=== PATIENT | male | born 1965 | race Caucasian/White ===

== ENCOUNTER 2016-07-19 16:12 | Emergency (ER) | payer MEDICAID, OTHER ==
[~2016-07-19] VITALS: Ht 182.9 cm; Wt 81.8 kg
[2016-07-19 16:44] VITALS: Ht 182.9 cm; Wt 81.8 kg
--- NOTE | 2016-07-19 18:37 | EN ---
Date/Time of Note Date/Time of Note DATE: 07/19/16 TIME: 18:35 ER Progress Note This 50-year-old male presents here in emergency department for complaints of left eye redness burning pain for the last 3 days, discussed the pain as burning , 6/10 scale, not better or worse with anything. Patient denies any vision changes. Patient denies any eye discharge. Patient did not take any medications to help with pain. Patient has a history of herpes simplex Virus, patient did not have any trauma in the eye. Patient is complaining of tearing. Patient was initially evaluated here in the medical examination, patient is needs fluorescein dye test for further evaluation to rule out her herpes simplex virus infection corneal abrasions or foreign body, patient will be evaluated in ER 2, waiting for a bed HERMAN HE NP Jul 19, 2016 18:36
--- NOTE | 2016-07-19 20:26 | ERD ---
ER Documentation Chief Complaint Date/Time DATE: 07/19/16 TIME: 20:25 Chief Complaint LEFT EYE REDNESS AND BURNING X3 DAYS HPI The patient is a 50-year-old male here with left eye redness and burning 3 days. He states he had some watery discharge on day 1. Denies visual changes or any kind. Denies wearing contacts. Denies foreign body in his eye. Denies metal or wood working. He does state that he rubs his eyes a lot and approximately one week ago he swam in a chlorinated swimming pool with his eyes open, and is been rubbing his eyes more than usual. Denies feeling ill or recent illness. States that his eye is quite painful and burning. He states that he has had a history of "eye herpes " possibly 15 years ago. ROS All systems reviewed and are negative except as per history of present illness. Medications Home Meds Active Scripts Ibuprofen* (Motrin*) 600 Mg Tab, 600 MG PO Q8, #30 TAB Prov:KATHY MAYFIELD, CARGO AND CONTAINER INSPECTOR 07/19/16 Erythromycin* (Erythromycin* Ophthalmic) 1 Applic Oint, 1 APPLIC LEFT EYE QID for 10 Days, EA Prov:KATHY MAYFIELD, CARGO AND CONTAINER INSPECTOR 07/19/16 Allergies Allergies: Coded Allergies: No Known Allergy (Unverified , 07/19/16) Physical Exam Vitals Vital Signs Date Time Temp Pulse Resp B/P Pulse Ox O2 Delivery O2 Flow Rate FiO2 07/19/16 16:44 98.2 60 18 149/70 99 Physical Exam INITIAL VITAL SIGNS: Reviewed by me GENERAL: Alert. Well developed and well nourished. No respiratory distress HEAD: Head is normocephalic. Atraumatic. EYES: EOMI. PERRL. No scleral icterus. Left eye with conjunctival injection throughout. Left eye with fluorescein uptake in the bottom portion of the cornea at the 5 o'clock position. Visual acuity: OD: 20/70 OS: 20/30 OU: 20/25 ENT: External ears, nose, and mouth normal. Nasal passages patent. Moist mucous membranes. NECK: Supple. Full range of motion. Trachea midline. RESPIRATORY: No tachypnea. Clear to auscultation bilaterally. No wheezing, rales , or rhonchi. CV: Regular rate and rhythm. No murmurs, rubs, or gallops ABDOMEN: Soft, non-distended, non-tender. No guarding. No rebound. No masses. Bowel sounds normal in all quadrants. BACK: No CVA tenderness. Full ROM. EXTREMITIES: No obvious deformity. No clubbing or cyanosis. No edema. SKIN: Warm and dry. No diaphoresis. No obvious rashes or lesions. NEUROLOGIC: Alert and oriented x 3. Appropriate. Face is symmetric. Speech is normal. Moves all extremities equally. Results 24 hrs Current Medications Medications (Trade) Dose Ordered Sig/Nilsa Route PRN Reason Start Time Stop Time Status Last Admin Dose Admin Fluorescein Sodium (Tfjrf-I-Epnyo) 1 strip ONCE ONCE LEFT EYE 07/19/16 20:30 2 20:31 DC Tetracaine HCl (Tetracaine 0.5% Oph) 1 drop ONCE ONCE LEFT EYE 07/19/16 20:30 2 20:31 DC Procedures/MDM Nursing Notes Reviewed Previous Medical Records requested via [employer]. EMERGENCY DEPARTMENT COURSE / MEDICAL DECISION MAKING: The patient comes to the ED secondary to left eye redness and pain for 3 days. Differential diagnosis upon initial evaluation includes but is not limited to: Foreign body, uveitis, iritis, corneal abrasion, bacterial conjunctivitis, viral conjunctivitis, allergic conjunctivitis, and others. The case was discussed with supervising physician Dr. Washington, who saw and examined the patient at bedside. She also did a Davis lamp exam with fluorescein. It was agreed that the patient has a corneal abrasion of the left eye and will be treated on an outpatient basis with antibiotics and close follow -up. No foreign body was visualized in the eye. No hyphema, purulent drainage, or any other abnormalities noted. Impression: Corneal abrasion, left eye The patient was treated here in the department with tetracaine drops with good pain relief. Based on patient's history of present illness and physical examination the decision was made to discharge. The patient was re-evaluated after ED treatment and stabilizing measures, and symptoms have improved. There is no evidence of life threatening injuries or illnesses at this time. On re-examination, patient resting in no distress, stable vital signs, reports feeling better and safe for discharge with outpatient follow up with PMD in 1-2 days. Patient given return precautions. Prescription Erythromycin ophthalmic Ibuprofen Patient's blood pressure was elevated but appears stable without evidence of hypertensive emergency, end organ damage, chest pain or shortness of breath. The patient was counseled about the risks of untreated hypertension and urged to pursue outpatient monitoring and therapy in 2-3 days with their primary care physician. Departure Diagnosis: Primary Impression: Corneal abrasion, left Encounter type: initial encounter Qualified Code: S05.02XA - Corneal abrasion, left, initial encounter Condition: Stable KATHY MAFYIELD NP Jul 19, 2016 20:26
[2016-07-19] MEDS ORDERED: FLUORESCEIN STRIP LEFT EYE ONE (20:30)
[2016-07-19] MEDS ORDERED: TETRACAINE 0.5% 15 ML OPH LEFT EYE ONE (20:30)
[2016-07-19] MEDS ORDERED: IBUP-1542 PO (21:09)
[2016-07-19] MEDS ORDERED: ERYTOPOI LEFT EYE (21:09)
== END 2016-07-19 21:30 | disposition home or self-care (01) ==
LOC: FTE 16:12
DX: S05.02XA Injury of conjunctiva and corneal abrasion without foreign body, left eye, initial encounter (principal); X58.XXXA Exposure to other specified factors, initial encounter; Y92.9 Unspecified place or not applicable
CPT/HCPCS: Z7502; Z7610; 99283

== ENCOUNTER 2016-09-11 22:58 | Emergency (ER) | payer MEDICAID ==
[~2016-09-11] VITALS: Ht 182.9 cm; Wt 81.5 kg
[~2016-09-11 22:58] MED LIST: ERYTOPOI LEFT EYE; IBUP-1542 PO
[2016-09-11 23:10] VITALS: Ht 182.9 cm; Wt 81.5 kg
[2016-09-12] MEDS ORDERED: FLUORESCEIN STRIP LEFT EYE ONE (01:00)
[2016-09-12] MEDS ORDERED: TETRACAINE 0.5% 4 ML OPH LEFT EYE ONE (01:00)
[2016-09-12] MEDS ORDERED: ACYC800T57 PO (01:55)
--- NOTE | 2016-09-12 02:03 | RADRPT ---
PROCEDURE: Ultrasound of the orbits CLINICAL INDICATION: left eye pain TECHNIQUE: High frequency scanning of both globes was performed COMPARISON: None FINDINGS: Imaging of the right eye shows a thin echogenic line in the posterior chamber, more likely due to de bris for vitreous hemorrhage given the orientation. Retinal hemorrhage cannot be completely exclude d. Imaging of the left eye shows multiple small echogenic foci in the posterior chamber consistent with vitreous debris/hemorrhage. The lens of both eyes appears grossly intact. IMPRESSION: Probable bilateral vitreous hemorrhage of uncertain age. Retinal hemorrhage cannot be excluded on t he right. MRI may be helpful. Physician Max Date Time Electronically viewed and signed by Loli Santana Physician on 09/12/2016 02:03 LE/
--- NOTE | 2016-09-12 02:03 | ERD ---
ER Documentation Chief Complaint Date/Time DATE: 09/12/16 TIME: 01:58 Chief Complaint Pt c/o L eye pain that has not gone away HPI This is a 51-year-old male presents to the ER complaining of continued left eye pain this been going on for the last month. Patient states that his left thigh burn that he is sensitive to light. Patient was seen here about a month ago and was given antibiotic drops for a corneal abrasion. Patient states that he had the drops, redness 1 away however pain did not go away. Patient denies any vision change or vision loss. He denied seeing any bright lights, halos, floaters. Denies any eye trauma. 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 He feels that this is the same problem. Denies any nausea or vomiting. He denies any headache. ROS 12 point review of systems was done, all negative except per HPI. Medications Home Meds Active Scripts Acyclovir* (Zovirax*) 800 Mg Tablet, 400 MG PO 5 TIMES DAILY for 7 Days, TAB Prov:SKYLER LEY 09/12/16 Ibuprofen* (Motrin*) 600 Mg Tab, 600 MG PO Q8, #30 TAB Prov:KATHY MAYFIELD, COMMODITY SUPERVISOR 07/19/16 Erythromycin* (Erythromycin* Ophthalmic) 1 Applic Oint, 1 APPLIC LEFT EYE QID for 10 Days, EA Prov:KATHY MAYFIELD, COMMODITY SUPERVISOR 07/19/16 Allergies Allergies: Coded Allergies: No Known Allergy (Unverified , 07/19/16) PMhx/Soc Medical and Surgical Hx: pt denies Medical Hx, pt denies Surgical Hx Hx Alcohol Use: No Hx Substance Use: No Hx Tobacco Use: No Smoking Status: Never smoker Physical Exam Vitals Vital Signs Date Time Temp Pulse Resp B/P Pulse Ox O2 Delivery O2 Flow Rate FiO2 09/11/16 23:10 98.3 65 16 123/68 98 Physical Exam GENERAL: The patient is well developed and appropriate for usual state of health , in no apparent distress. HEENT: Atraumatic. Conjunctivae with no injection or erythema. There is no eye discharge. Patient has normal and nonpainful extraocular movements visual ahmadi are intact. There is no hyphema, hypopyon. No sign erythema to the eye. No foreign body. Negative Marc sign CHEST: Clear to auscultation bilaterally. There are no rales, wheezes or rhonchi. HEART: Regular rate and rhythm. No murmurs, clicks, rubs or gallops. NEURO: Alert and oriented. \ Results 24 hrs Current Medications Medications (Trade) Dose Ordered Sig/Nilsa Route PRN Reason Start Time Stop Time Status Last Admin Dose Admin Fluorescein Sodium (Xcsky-B-Gpnim) 1 strip ONCE ONCE LEFT EYE 09/12/16 01:00 09/12/16 01:01 DC Tetracaine HCl (Tetracaine 0.5% Steri-Unit Sarah) 1 drop ONCE ONCE LEFT EYE 09/12/16 01:00 09/12/16 01:01 DC Procedures/MDM he was stable to the ER course visual acuity was taken and patient has 20/20 vision. Troponin was used to measure pressure and eye pressure was 20/ 20bilaterally. Eye was examined with fluorescing stain there is no evidence of dendrites or corneal abrasions or ulcers on my examination. On ultrasound patient did have vitreous hemorrhages of unknown age. Discussed this finding with Dr. Early. At this time patient does not have any blurry vision in his visual acuity is normal, because of this patient is able to follow-up outpatient as soon as possible. I urged patient to the head batcher tomorrow. .Subconjunctival hemorrhage, bacterial conjunctivitis, viral conjunctivitis, allergic conjunctivitis,orbital cellulitis, hyphema, corneal abraion, keratitis , uveitis, angle-closure glaucoma, retinal detachment, ruptured globe. Patient may have recurrent herpes infection and there is no evidence of dendrites. Patient will be sent home with acyclovir 400 mg 5 times a day. I do not believe patient needs steroids at this time as he does not have any dendrites. Patient does not have any vision loss in his visual acuity is well. At this time patient urgently needs to follow-up with an head batcher a given information for [facility]. Patient needs to follow-up with his primary care doctor' s within 1-2 days return to ER sooner symptoms worsen. My shared medical decision making with patient he understands and agrees with plan. Departure Diagnosis: Primary Impression: Ocular herpes Condition: Stable Patient Instructions: The Herpes Virus Referrals: [facility] Hours: Mon - Fri 9:00 AM - 5:00 PM Additional Instructions: SPECIALIST: YOU HAVE A MEDICAL CONDITION WHICH REQUIRES YOU TO SEE A SPECIALIST WITHIN THE NEXT 1-2 DAYS. PLEASE FOLLOW UP WITH YOUR PRIMARY PHYSICIAN FOR REFFERAL.IF YOU DO NOT HAVE A PRIMARY CARE PHYSICIAN AND/OR YOU CAN NOT AFFORD TO SEE A PHYSICIAN THE FOLLOWING RESOURCES HAVE BEEN SUPPLIED TO YOU. IT IS YOUR RESPONSIBILITY TO BE SEEN BY THE SPECIALIST PLEASE SEE OPTHALMOLOGIST SOON POSSIBLE! SKYLER LEY Sep 12, 2016 02:02
[2016-09-12 02:20] VITALS: TEMP 97
== END 2016-09-12 02:20 | disposition home or self-care (01) ==
LOC: FTE 22:58
DX: B00.50 Herpesviral ocular disease, unspecified (principal)
CPT/HCPCS: 76536; Z7502; Z7610

== ENCOUNTER 2016-09-19 05:18 | Emergency (ER) | payer SELFPAY ==
[~2016-09-19] VITALS: Ht 182.9 cm; Wt 79.5 kg
[~2016-09-19 05:18] MED LIST changes: +ACYC800T57 PO
[2016-09-19 05:21] VITALS: Ht 182.9 cm; Wt 79.5 kg
[2016-09-19] MEDS ORDERED: KETOROLAC 30 MG INJ IV STA (06:13)
--- NOTE | 2016-09-19 06:33 | ERD ---
ER Documentation Chief Complaint Date/Time DATE: 09/19/16 TIME: 06:25 Chief Complaint Back pain started 30 minutes ago HPI This is a 51-year-old male presenting to the emergency department for low back pain x 1 hour. Pain is nonradiating. 1 hour. Patient states he woke up in the middle the night to use the bathroom and when he stood up he had sharp pain to his midline lower back. Patient describes pain as sharp No abdominal pain or chest pain. No shortness of breath or difficulty breathing. No heart palpitation. No saddle anesthesia. No urinary or bowel incontinence. No dysuria, hematuria or difficulty urinating. No fevers or chills. No recent fall or injury. Patient states he had similar pain about 15 years ago and he went to chiropractor and pain resolved. No confusion, neurological deficits or weakness. Patient did not take any medications at home. ROS All systems reviewed and are negative except as per history of present illness. Medications Home Meds Active Scripts Ibuprofen* (Motrin*) 600 Mg Tab, 600 MG PO Q6, #15 TAB Prov:JESSE LINDER NP 09/19/16 Hydrocodone/Acetaminophen ([place] 5-325 Tablet) 1 Each Tablet, 1 TAB PO Q6H Y for PAIN, #7 TAB Prov:JESSE LINDER NP 09/19/16 Acyclovir* (Zovirax*) 800 Mg Tablet, 400 MG PO 5 TIMES DAILY for 7 Days, TAB Prov:SKYLER LEY 09/12/16 Ibuprofen* (Motrin*) 600 Mg Tab, 600 MG PO Q8, #30 TAB Prov:KATHY MAYFIELD NP 07/19/16 Erythromycin* (Erythromycin* Ophthalmic) 1 Applic Oint, 1 APPLIC LEFT EYE QID for 10 Days, EA Prov:KATHY MAYFIELD NP 07/19/16 Allergies Allergies: Coded Allergies: No Known Allergy (Unverified , 07/19/16) PMhx/Soc Medical and Surgical Hx: pt denies Medical Hx, pt denies Surgical Hx Hx Alcohol Use: No Hx Substance Use: No Hx Tobacco Use: No Smoking Status: Never smoker Physical Exam Vitals Vital Signs Date Time Temp Pulse Resp B/P Pulse Ox O2 Delivery O2 Flow Rate FiO2 09/19/16 09:53 68 18 122/70 98 Room Air 09/19/16 05:21 97.1 68 18 131/66 98 Physical Exam Const: No acute distress, alert, oriented to person, place and time. Head: Atraumatic Eyes: Normal Conjunctiva ENT: Normal External Ears, Nose and Mouth. Neck: Full range of motion..~ No meningismus. Resp: Clear to auscultation bilaterally. No wheezing, rhonchi or crackles. Cardio: Regular rate and rhythm, no murmurs Abd: Soft, non tender, non distended. Normal bowel sounds. Skin: No petechiae or rashes Back: No midline tenderness on palpation. No flank tenderness. No CVA tenderness. Ext: No cyanosis, or edema Neur: Awake and alert Psych: Normal Mood and Affect Result Diagram: 09/19/16 0645 09/19/16 0645 Results 24 hrs Laboratory Tests Test 09/19/16 06:45 09/19/16 06:53 White Blood Count 7.410^3/ul Red Blood Count 5.6210^6/ul Hemoglobin 15.9g/dl Hematocrit 47.8% Mean Corpuscular Volume 85.1fl Mean Corpuscular Hemoglobin 28.3pg Mean Corpuscular Hemoglobin Concent 33.3g/dl Red Cell Distribution Width 12.7% Platelet Count 15240^3/UL Mean Platelet Volume 10.3fl Neutrophils % 47.7% Lymphocytes % 36.7% Monocytes % 10.3% Eosinophils % 4.2% Basophils % 0.7% Nucleated Red Blood Cells % 0.0/100WBC Neutrophils # 3.510^3/ul Lymphocytes # 2.710^3/ul Monocytes # 0.810^3/ul Eosinophils # 0.310^3/ul Basophils # 0.110^3/ul Nucleated Red Blood Cells # 0.010^3/ul Sodium Level 144mmol/L Potassium Level 4.4mmol/L Chloride Level 100mmol/L Carbon Dioxide Level 28mmol/L Anion Gap 20 Blood Urea Nitrogen 18mg/dl Creatinine 0.86mg/dl Glucose Level 109mg/dl Calcium Level 9.3mg/dl Total Bilirubin 0.4mg/dl Direct Bilirubin 0.00mg/dl Indirect Bilirubin 0.4mg/dl Aspartate Amino Transf (AST/SGOT) 34IU/L Alanine Aminotransferase (ALT/SGPT) 34IU/L Alkaline Phosphatase 82IU/L Total Protein 8.4g/dl Albumin 4.8g/dl Globulin 3.60g/dl Albumin/Globulin Ratio 1.33 Bedside Urine pH (LAB) 5.5 Bedside Urine Protein (LAB) Negative Bedside Urine Glucose (UA) Negative Bedside Urine Ketones (LAB) Negative Bedside Urine Blood Negative Bedside Urine Nitrite (LAB) Negative Bedside Urine Leukocyte Esterase (L Negative Current Medications Medications (Trade) Dose Ordered Sig/Nilsa Route PRN Reason Start Time Stop Time Status Last Admin Dose Admin Ketorolac Tromethamine (Toradol) 30 mg ONCE STAT IV 09/19/16 06:13 09/19/16 06:22 DC 09/19/16 06:55 Acetaminophen/ Hydrocodone Bitart ([place] (5/325)) 1 tab ONCE ONCE PO 09/19/16 08:00 09/19/16 08:01 DC 09/19/16 07:49 Procedures/MDM ED COURSE: The patient was stable throughout ED course. I kept the patient and/or family informed of laboratory and diagnostic imaging results throughout the ED course. Laboratory CBC no significant infection or anemia CMP no significant electrolyte amount Urine dip negative Imaging Patient: MARY BETH MONIQUE : 1965 Age: 51 Sex: M MR #: [id number] DOS: 09/19/16 0756 Ordering MD: JESSE LINDER NP Location: [facility] Room/Bed: PROCEDURE: XR L-Spine. CLINICAL INDICATION: Low back pain. TECHNIQUE: AP, lateral, and cone down views of the lumbar spine were obtained. COMPARISON: None FINDINGS: The lumbar lordosis is maintained. The vertebral body and disk space heights are normal. No acute fracture or subluxation is seen. No paravertebral soft tissue abnormality is seen. IMPRESSION: Unremarkable lumbar spine series. MDM: 51-year-old male presents emergency department for lower back pain 1 hour. Patient describes pain as sharp and rating pain 10/10. IV access was obtained per staff accountant. Patient given Toradol. Patient states he continues to have pain. Patient given [place] p.o. Upon reassessment, patient states pain has slightly reduced however continues to have pain. X-ray lumbar spine reviewed by radiologist is unremarkable. Patient states he had similar pain about 15 years ago and went to chiropractor for an adjustment which resolved his pain. Urine is negative for infection. No saddle anesthesia, incontinence of bowel or bladder, neurological deficits or weakness. Remains hemodynamically stable. No fevers or chills. There is no fever or chills therefore low suspicion for osteomyelitis or infection. No saddle anesthesia, bowel or bladder incontinence and I have low suspicion for cauda equina syndrome or epidural abscess. Urine dip negative for infection or blood therefore low suspicion for pyelonephritis or nephrolithiasis. No abdominal pain therefore low suspicion for aortic aneurysm , cholecystitis or pancreatitis. Differential diagnosis includes but not limited to lumbar strain, spondylolisthesis, osteoarthritis, herniated disc, spinal stenosis, osteoporosis , acute fracture, neoplasia, septic discitis, inflammatory arthritis, Paget disease, pyelonephritis, nephrolithiasis, aortic aneurysm, cholecystitis and pancreatitis. Patient is appropriate for outpatient management will be given prescription for ibuprofen and [place]. Instructed patient to follow-up with primary care provider or orthopedic physician in the next 24-48 hours for reassessment and additional management. CD of x-ray report provided for patient. Return to ED for any high fever, chest pain, difficulty breathing, shortness breath, wheezing , vomiting, diarrhea, abdominal pain or any new or worsening symptoms. Patient verbalizes understanding. All questions answered at discharge. Departure Diagnosis: Primary Impression: Back pain Back pain location: low back pain Chronicity: acute Back pain laterality: midline Sciatica presence: without sciatica Qualified Code: M54.5 - Acute midline low back pain without sciatica Condition: Stable JESSE LINDER NP Sep 19, 2016 06:33
[2016-09-19 06:53] LABS: URINE BLOOD (Dip) POC Negative (NEGATIVE)
[2016-09-19 06:54] LABS: ADD SCAN DIFF NO
[2016-09-19 07:05] LABS: BASOPHIL # 0.1 10^3/ul (0.0-0.1); BASOPHILS % 0.7 % (0.0-2.0); EOSINOPHILS # 0.3 10^3/ul (0.0-0.5); EOSINOPHILS % 4.2 % (0.0-7.0); HEMATOCRIT 47.8 % (42.0-52.0); HEMOGLOBIN 15.9 g/dl (14.0-18.0); LYMPHOCYTES # 2.7 10^3/ul (0.8-2.9); LYMPHOCYTES % 36.7 % (15.0-51.0); MEAN CORPUSCULAR HEMOGLOBIN 28.3 pg (29.0-33.0); MEAN CORPUSCULAR HGB CONC 33.3 g/dl (32.0-37.0); MEAN CORPUSCULAR VOLUME 85.1 fl (82.0-101.0); MEAN PLATELET VOLUME 10.3 fl (7.4-10.4); MONOCYTE # 0.8 10^3/ul (0.3-0.9); MONOCYTES % 10.3 % (0.0-11.0); NEUTROPHIL # 3.5 10^3/ul (1.6-7.5); NEUTROPHILS % 47.7 % (39.0-77.0); PLATELET COUNT 269 10^3/UL (140-415); RED BLOOD COUNT 5.62 10^6/ul (4.70-6.10); RED CELL DISTRIBUTION WIDTH 12.7 % (11.5-14.5); WHITE BLOOD COUNT 7.4 10^3/ul (4.8-10.8)
[2016-09-19 07:13] LABS: ALBUMIN 4.8 g/dl (3.3-4.9); POTASSIUM 4.4 mmol/L (3.5-5.1)
[2016-09-19 07:15] LABS: BILIRUBIN,INDIRECT 0.4 mg/dl (0-1.1); BILIRUBIN,TOTAL 0.4 mg/dl (0.2-1.3); CREATININE 0.86 mg/dl (0.61-1.24)
[2016-09-19 07:16] LABS: ALBUMIN/GLOBULIN RATIO 1.33; CALCIUM 9.3 mg/dl (8.4-10.2); TOTAL PROTEIN 8.4 g/dl (6.1-8.1)
[2016-09-19] MEDS ORDERED: HYDROCODONE/APAP (5/325) TAB PO ONE (08:00)
--- NOTE | 2016-09-19 09:14 | RADRPT ---
PROCEDURE: XR L-Spine. CLINICAL INDICATION: Low back pain. TECHNIQUE: AP, lateral, and cone down views of the lumbar spine were obtained. COMPARISON: None FINDINGS: The lumbar lordosis is maintained. The vertebral body and disk space heights are normal. No acute fracture or subluxation is seen. No paravertebral soft tissue abnormality is seen. IMPRESSION: Unremarkable lumbar spine series. RPTAT: HPNM Physician Ora Date Time Electronically viewed and signed by Jacinto Khoury Physician on 09/19/2016 09:14 /
[2016-09-19] MEDS ORDERED: HYDR-906 PO (09:30)
[2016-09-19] MEDS ORDERED: IBUP-1542 PO (09:30)
[2016-09-19 09:53] VITALS: BP 122/70; PULSE 68; RESP 18
== END 2016-09-19 09:54 | disposition home or self-care (01) ==
LOC: FTE 05:18
DX: M54.5 Low back pain (principal)
CPT/HCPCS: 72100; 80053; 81003; 85025; 96374; 99284; J1885

== ENCOUNTER 2016-10-27 00:09 | Emergency (ER) | payer SELFPAY ==
[~2016-10-27] VITALS: Ht 182.9 cm; Wt 81.8 kg
[~2016-10-27 00:09] MED LIST changes: +HYDR-906 PO
[2016-10-27 00:11] VITALS: Ht 182.9 cm; Wt 81.8 kg
--- NOTE | 2016-10-27 00:55 | ERD ---
ER Documentation Chief Complaint Date/Time DATE: 10/27/16 TIME: 00:49 Chief Complaint RIGHT MIDDLE FINGER PAIN AND SWELLING. UNKNOWN TRAUMA HPI 51-year-old male presents here in emergency department for complaints of swelling surrounding the right middle fingernail, and some pus accumulation started 2 days ago. Patient describes the pain as sharp pain, succession scale, is worse upon touching the area. Patient denies any numbness or tingling. Patient denies any trauma on affected area. Patient also feels on and off irregular heartbeat at times. Patient denies any chest pain. Patient denies any dyspnea on exertion or dyspnea on lying down. Patient denies any dizziness. Patient denies any shortness of breath. ROS All systems reviewed and are negative except as per history of present illness. Medications Home Meds Active Scripts Ibuprofen* (Motrin*) 600 Mg Tab, 600 MG PO Q6H Y for PAIN AND OR ELEVATED TEMP, #30 TAB Prov:HERMAN HE NP 10/27/16 Cephalexin* (Keflex*) 500 Mg Capsule, 500 MG PO QID for 10 Days, CAP Prov:HERMAN HE NP 10/27/16 Sulfamethoxazole/Trimethoprim* (Bactrim Ds* Tablet) 1 Each Tablet, 1 TAB PO BID , #20 TAB Prov:HERMAN HE NP 10/27/16 Ibuprofen* (Motrin*) 600 Mg Tab, 600 MG PO Q6, #15 TAB Prov:JESSE LINDER NP 09/19/16 Hydrocodone/Acetaminophen ([place] 5-325 Tablet) 1 Each Tablet, 1 TAB PO Q6H Y for PAIN, #7 TAB Prov:JESSE LINDER NP 09/19/16 Acyclovir* (Zovirax*) 800 Mg Tablet, 400 MG PO 5 TIMES DAILY for 7 Days, TAB Prov:SKYLER LEY 09/12/16 Ibuprofen* (Motrin*) 600 Mg Tab, 600 MG PO Q8, #30 TAB Prov:KATHY MAYFIELD NP 07/19/16 Erythromycin* (Erythromycin* Ophthalmic) 1 Applic Oint, 1 APPLIC LEFT EYE QID for 10 Days, EA Prov:KATHY MAYFIELD NP 07/19/16 Allergies Allergies: Coded Allergies: No Known Allergy (Unverified , 2/5/17) PMhx/Soc Medical and Surgical Hx: pt denies Medical Hx, pt denies Surgical Hx Hx Alcohol Use: No Hx Substance Use: No Hx Tobacco Use: No Smoking Status: Never smoker FmHx Family History: No coronary disease, No diabetes, No other Physical Exam Vitals Vital Signs Date Time Temp Pulse Resp B/P Pulse Ox O2 Delivery O2 Flow Rate FiO2 10/27/16 00:11 97.6 74 20 167/91 99 Physical Exam GENERAL: The patient is well developed and appropriate for usual state of health, in no apparent distress. CHEST: Clear to auscultation bilaterally. There are no rales, wheezes or rhonchi. HEART: Noted irregular rhythm with normal rate. No murmurs, clicks, rubs or gallops. No S3 or S4. ABDOMEN: Soft, nontender and nondistended. Good bowel sounds. No rebound or guarding. No gross peritonitis. No gross organomegaly or masses. No Nicholas sign or McBurney point tenderness. BACK: No midline or flank tenderness. EXTREMITIES: Equal pulses bilaterally. There is no peripheral clubbing, cyanosis or edema. No focal swelling or erythema. Full range of motion. Grossly neurovascularly intact. NEURO: Alert and oriented. Cranial nerves 2-12 intact. Motor strength in all 4 extremities with 5/5 strength. Sensation grossly intact. Normal speech and gait. SKIN: Noted erythema and fluctuance and pus accumulation noted on the skin surrounding the right middle fingernail. There is no apparent rash or petechia. The skin is warm and dry. HEMATOLOGIC AND LYMPHATIC: There is no evidence of excessive bruising or lymphedema. No gross cervical, axillary, or inguinal lymphadenopathy. Results 24 hrs EKG was done, read by me and is sinus rhythm with premature supraventricular complexes, right axis deviation, T-wave abnormality, normal axis, there is no ST changes or changes in the EKG that indicates any cardiac emergencies at this time. Patient's EKG was also reviewed by Dr. Yeh. Impression: no acute findings on EKG Procedures/MDM Procedure Note: After obtaining informed consent, the wound was irrigated with 250 ml of normal saline and cleaned with diluted betadine. Using aseptic technique, 0.5 cm incision was done in the middle of the fluctuant area of the paronychia. Pustular discharge was drained from the abscess.After the procedure, dry dressing was applied on the area. Patient tolerated procedure well. Dressing was applied afterwards. Finger metal splint was applied afterwards. Medical decision making: Patient symptoms are consistent with paronychia, this was drained without any difficulty. Patient does not have any symptoms of neurovascular compromise. Patient will be started on antibiotics, Bactrim and Keflex, ibuprofen for pain, is advised to follow-up with primary doctor in 2-3 days for reevaluation symptoms and wound check. Patient has irregular heartbeat , EKG shows occasional PVCs, patient was advised to see a materials management clerk specialist for Holter monitoring and further evaluation. At this time, and patient does not have any chest pain, low suspicion for any cardiopulmonary emergencies at this time. Laboratory testing or radiology exams indicated at time. Patient does not have any shortness of breath and dyspnea on exertion dyspnea on lying down, or any cardiopulmonary symptoms at this time. Disposition: Home. Stable. Departure Diagnosis: Primary Impression: Paronychia Laterality: right Qualified Code: L03.011 - Paronychia, right Additional Impression: Palpitations Condition: Stable Patient Instructions: Palpitations, Paronychia Additional Instructions: see Vb Developer specialist for Holter monitoring. See primary care doctor in 2 days for wound check. HERMAN HE NP October 27, 2016 00:54
[2016-10-27] MEDS ORDERED: SULF1TAB31 PO (01:52)
[2016-10-27] MEDS ORDERED: CEPH-443 PO (01:52)
[2016-10-27] MEDS ORDERED: IBUP-1542 PO (01:52)
== END 2016-10-27 02:05 | disposition home or self-care (01) ==
LOC: FTE 00:09
DX: L03.011 Cellulitis of right finger (principal); R00.2 Palpitations
CPT/HCPCS: 93005